=== PATIENT | female | born 1955 | race Caucasian/White ===

== ENCOUNTER 2023-11-14 20:12 | Emergency (ER) | payer MEDICARE ==
[2023-11-14] MEDS ORDERED: Sulfamethoxazole/Trimethoprim 800-160 MG Tab PO ONE (20:13)
[2023-11-14] MEDS ORDERED: Sodium Chloride 0.9% 10 ML Syringe FLUSH PRN (20:39)
[2023-11-14 20:55] LABS: BASOPHILS ABSOLUTE AUTO 0.1 x10-3/uL (0.0-0.1); BASOPHILS PERCENT AUTO 1.1 % (0.2-1.5); EOSINOPHILS ABSOLUTE AUTO 0.2 x10-3/uL (0.0-0.8); EOSINOPHILS PERCENT AUTO 3.9 % (0.6-8.1); HEMOGLOBIN 15.7 g/dL (11.4-15.5); LYMPHOCYTES ABSOLUTE AUTO 2.3 x10-3/uL (1.0-4.4); LYMPHOCYTES PERCENT AUTO 36.9 % (18.4-52.1); MEAN CORPUSCULAR HEMOGLOBIN 30.1 pg (23.9-33.9); MEAN CORPUSCULAR HGB CONC 32.8 g/dL (31.9-34.8); MONOCYTES ABSOLUTE AUTO 0.4 x10-3/uL (0.3-1.0); MONOCYTES PERCENT AUTO 6.7 % (4.4-15.7); NEUTROPHILS ABSOLUTE AUTO 3.2 x10-3/uL (1.5-6.3); NEUTROPHILS PERCENT AUTO 51.4 % (30.8-76.2); PLATELET COUNT,PLT 237 x10(3)uL (151-488); RED BLOOD CELL COUNT 5.22 x10(6)uL (3.60-5.20); RED CELL DISTRIBUTION WIDTH 13.8 % (12.3-16.5); WHITE BLOOD CELL COUNT,WBC 6.3 x10-3/uL (3.0-10.3)
[2023-11-14 21:04] LABS: BLOOD UREA NITROGEN,BUN 8 mg/dL (7-18); BUN/CREATININE RATIO 8.9 (9-20); CALCIUM 9.7 mg/dL (8.6-10.2); CARBON DIOXIDE,CO2 28 mmol/L (21-32); CHLORIDE,CL 110 mmol/L (100-110); CREATININE 0.9 mg/dL (0.55-1.02); EST CRCL DRUG DOSING (CG) 57.37 mL/min; ESTIMATED GFR 69 mL/min (>60); GLUCOSE RANDOM 104 mg/dL (80-116); POTASSIUM,K 5.2 mmol/L (3.5-5.3); SODIUM,NA 145 mmol/L (135-145)
[2023-11-14 21:10] LABS: ALANINE AMINOTRANSFERASE,ALT 36 U/L (12-36); ALBUMIN 3.2 g/dL (3.2-4.6); ALKALINE PHOSPHATASE 64 IU/L (56-112); AMYLASE 83 U/L (25-115); ASPARTATE AMNIOTRANSFERASE,AST 30 IU/L (5-25); BILIRUBIN TOTAL 0.4 mg/dL (0.1-1.3); PROTEIN TOTAL,TP 6.5 g/dL (6.0-8.0)
[2023-11-14 21:21] LABS: TSH ULTRASENSITIVE 6.03 IU/mL (0.36-3.74)
[2023-11-14] MEDS: Iopamidol 755 Mg/ML 100 ML Bottle IV ONE (21:35)
[2023-11-14] MEDS: Sodium Chloride 0.9% 1,000 ML IV SCH (21:44)
[2023-11-14 23:06] LABS: BILIRUBIN,URINE NEGATIVE (NEGATIVE); GLUCOSE,URINE NORMAL (NORMAL); KETONES,URINE NEGATIVE (NEGATIVE); LEUKOCYTE ESTERASE,URINE LARGE (NEGATIVE); NITRITE,URINE NEGATIVE (NEGATIVE); OCCULT BLOOD,URINE NEGATIVE (NEGATIVE); PROTEIN,URINE NEGATIVE (NEGATIVE); UROBILINOGEN,URINE NORMAL (NEGATIVE)
[2023-11-14 23:07] LABS: APPEARANCE,URINE SLIGHTLY CLOUDY (CLEAR); BACTERIA,URINE FEW (NS); COLOR,URINE YELLOW (YELLOW); RBC,URINE 0-5 (0-5); SQUAMOUS EPITHELIAL CELLS,UR OCCASIONAL (NS,R,O)
== END 2023-11-14 23:46 | disposition home or self-care (01) ==
LOC: FB.ED 20:12
DX: K52.9 Noninfective gastroenteritis and colitis, unspecified (principal); N39.0 Urinary tract infection, site not specified; Z88.0 Allergy status to penicillin; Z79.890 Hormone replacement therapy; Z79.899 Other long term (current) drug therapy
CPT/HCPCS: 74177; 80053; 81001; 82150; 83690; 84443; 85025; 87086; 96360; 99283; 99284; A9270; J7030; Q9967

== ENCOUNTER 2024-01-11 06:46 | Day surgery (SDC) | payer MEDICARE ==
[~2024-01-11 06:46] MED LIST: Sodium Chloride 0.9% 10 ML Syringe FLUSH PRN
[2024-01-11] MEDS ORDERED: Propofol 200 MG/20 ML SDV IV ONE (06:47)
[2024-01-11] MEDS ORDERED: Lidocaine 2% 100 MG/5 ML Syringe IVPUSH ONE (06:47)
[2024-01-11] MEDS: Lactated Ringers 1,000 ML IV SCH (07:31)
[2024-01-11] MEDS: Simethicone Drops 40 MG/0.6 ML 30 ML Bottle ONE (08:03)
== END 2024-01-11 09:38 | disposition home or self-care (01) ==
LOC: FB.SDS 06:46
PROVIDERS: ATTEND Surgery
DX: Z12.11 Encounter for screening for malignant neoplasm of colon (principal); K59.01 Slow transit constipation; E66.9 Obesity, unspecified; Z80.0 Family history of malignant neoplasm of digestive organs; Z79.899 Other long term (current) drug therapy; Z79.890 Hormone replacement therapy; Z88.0 Allergy status to penicillin; Z88.8 Allergy status to other drugs, medicaments and biological substances; Z88.5 Allergy status to narcotic agent; Z68.30 Body mass index [BMI] 30.0-30.9, adult
CPT/HCPCS: 00812; A9270-GY; J2704; J7120

== ENCOUNTER → 2024-07-27 | Day surgery (SDC) | payer MEDICARE ==
[~2024-07-27] MED LIST changes: +Lidocaine 2% 100 MG/5 ML Syringe IVPUSH ONE; +Lidocaine 2% Viscous Solution 15 ML UD PO ONE; +Midazolam 1 MG/ML 2 ML SDV IV ONE; +Propofol 200 MG/20 ML SDV IV ONE
[2024-07-27] MEDS: Lactated Ringers 1,000 ML IV SCH (09:15)
[2024-07-27 10:34] LABS: CREATININE 0.8 mg/dL (0.55-1.02); EST CRCL DRUG DOSING (CG) 63.63 mL/min
[2024-07-27] MEDS: Diatrizoate Meglumine/Diatrizoate Sodium 37% 30 ML Bottle PO ONE (11:51)
[2024-07-27] MEDS: Iopamidol 755 Mg/ML 100 ML Bottle IV SCH (11:51)
[2024-07-29 01:23] LABS: CANCER ANTIGEN-GI (CA 19-9) 5 U/mL (<=35); CARCINOEMBRYONIC ANTIGEN 1.1 ng/mL
== END ==
LOC: FB.SDS 07:40
PROVIDERS: ATTEND Surgery
DX: C15.9 Malignant neoplasm of esophagus, unspecified (principal); K44.9 Diaphragmatic hernia without obstruction or gangrene; F32.A Depression, unspecified; F41.9 Anxiety disorder, unspecified; E78.5 Hyperlipidemia, unspecified; Z79.899 Other long term (current) drug therapy; Z88.0 Allergy status to penicillin; Z88.1 Allergy status to other antibiotic agents; Z88.5 Allergy status to narcotic agent
CPT/HCPCS: 00731; 36415; 43239; 71260; 74177; 82378; 82565; 86301; 88305; 88312; 88325; 88342; 99100; A9270; J2250; J2704; J7120; Q9963; Q9967